=== PATIENT | male | born 1930 | race Caucasian/White ===

== ENCOUNTER 2018-10-13 11:30 | Inpatient (IN) | payer OTHER ==
[2018-10-14] MEDS ORDERED: COLACE100 MG PO (01:35)
[2018-10-14] MEDS ORDERED: LYRICA75 MG PO (01:36)
[2018-10-14] MEDS ORDERED: ISOSORBIDE MONO60 M1 PO (01:37)
[2018-10-14] MEDS ORDERED: NITROSTAT0.4 MG SL (01:49)
[2018-10-14] MEDS ORDERED: ACETAMINOPHEN325 MG PO (01:53)
[2018-10-14] MEDS ORDERED: LASIX40 MG PO (01:53)
[2018-10-14] MEDS ORDERED: ZOFRAN4 MG PO (01:55)
[2018-10-14] MEDS ORDERED: K-DUR20 MEQ PO (01:55)
[2018-10-14] MEDS ORDERED: MORPHINE SULFAT30 MG PO (01:57)
[2018-10-14] MEDS ORDERED: MIRALAX17 GM PO (01:58)
[2018-10-14] MEDS ORDERED: LORAZEPAM1 MG/0.5 M SL (02:01)
[2018-10-14] MEDS ORDERED: ATIVAN0.5 MG PO (02:02)
[2018-10-14] MEDS ORDERED: DURAGESIC1 PATCH .2 TRANSDERM (02:03)
[2018-10-14] MEDS ORDERED: CYMBALTA20 MG PO (02:04)
[2018-10-14] MEDS ORDERED: DECADRON4 MG PO (02:06)
[2018-10-14 02:38] VITALS: BP 94/36
--- NOTE | 2018-10-14 07:10 | MORECARE ---
CASE MANAGEMENT DISCHARGE SUMMARY PATIENT: PATITO REYNOLDS UNIT: [id number] ADM DATE: 10/13/18 AGE: 88 : 31 SEX: M ROOM/BED: D.2104 AUTHOR: LAUREANO PENA PHYSICIAN: REFERRING PHYSICIAN: JOSIE VAN MD DATE OF SERVICE: 10/14/18 Discharge Plan Patient Name: PATITO REYNOLDS Facility: [facility]:[place] : 1930 Planned Disposition: Home with Hospice Anticipated Discharge Date: Discharge Date: Expected LOS: Initial Reviewer: [email or web address] Initial Review Date: 10/14/2018 Generated: 10/14/18 8:10 am Comments DCP- Discharge Planning Updated by [email or web address]: Darrick Esqueda on 10/14/18 6:[address] Patient Name: PATITO REYNOLDS Admission Status: Elective Accout number: [id number] Admission Date: 10-13-2018 : 1930 Admission Diagnosis: Attending: JOSIE VAN Current LOS: 1 Anticipated DC Date: Planned Disposition: Home with Hospice Primary Insurance: UNINSURED DISCOUNT PLAN PLANNED EXTERNAL PROVIDER: [facility] Discharge Planning Comments: CM REVIEWED CHART, PT ADMITTED FOR PAIN CONTROL WITH [facility]. ALL CASE MANAGEMENT SERVICES PROVIDED BY [facility]. Program Host: Darrick Esqueda Patient Name: PATITO REYNOLDS Page [id number] at 0710 All edits/amendments must be made on the electronic document DICTATION DATE: 10/14/18708 MOTOR BIKE MECHANIC: ROSA 10/14/18708 RPT#: [id number] DC DATE: STATUS: ADM IN [facility] [address] [place] [address] END OF REPORT
--- NOTE | 2018-10-14 07:15 | NUR ---
INITIAL ROUNDING ON THE PATIENT, NO FAMILY AT BEDSIDE. PATIENT IS SLIGHTLY SNORING, SUPINE WITH HOB 30 DEGREES. BED ALARM TURNED ON AT THIS TIME. PATIENT WAKES TO NAME BUT FALLS BACK TO SLEEP. CALL LIGHT IN REACH
[2018-10-14 08:06] VITALS: BP 170/86
--- NOTE | 2018-10-14 11:50 | NUR ---
THE SECURITY GUARD SUPERVISOR PUMP IS BEEPING, NEEING REPLACEMENT MEDICATION. THE PATIENT IS VERY SLEEPY, DENIES PAIN. WILL LEAVE SECURITY GUARD SUPERVISOR OFF AT THIS TIME AND ALLOW THE PATIENT TO WAKE UP SOME, THE FAMILY AT BEDSIDE AGREES. WILL CONT TO MONITOR FOR PAIN
[2018-10-14 20:00] VITALS: BP 158/95
--- NOTE | 2018-10-14 21:57 | NUR ---
PT LAYING IN BED UN-ALERT AND ONLY RESPONSIVE TO STURNUM RUB. PT EYES CLOSED RR WITH CRACKLES AND GURGLES. PT ON CONTROLLER OPERATIONS AND HR MANAGER PUMP FOR PAIN. STRAIGHTNED PT'S BED AND PROVIDED ORAL CARE. WILL CONTINUE TO MONITOR PT.
[2018-10-15 00:30] VITALS: BP 160/82
--- NOTE | 2018-10-15 02:45 | NUR ---
PT RECIEVED BEDBATH. PT RESTING IN BED ALERT TO LOUD VOICE ONLY. PT BREATH SOUNDS WET. NO S/S OF DISTRESS. BED LOW CALL LIGHT WITHIN REACH. WILL CONTINUE TO MONITOR.
--- NOTE | 2018-10-15 04:50 | NUR ---
PT RESTLESS WITH SNORING LIKE RESPIRATIONS. 2MG BOLUS OF GIVEN. WILL CONTINUE TO MONITOR.
--- NOTE | 2018-10-15 08:20 | NUR ---
PRICE CLERK TRIED TO FEED PT BREAKFAST AND HE WOULD NOT EAT. PT IN AND OUT OF LETHARGY AND RESTLESSNESS.
--- NOTE | 2018-10-15 09:40 | NUR ---
SPOKE WITH HOSPICE NURSE THAT PT NEEDS ATROPINE DROPS. SHE GAVE ME ORDER TO PUT IN FOR ATROPINE SUBLINGUAL 1-2 DROPS Q2HP FOR SECRETIONS.
[2018-10-15 09:46] VITALS: BP 120/92
--- NOTE | 2018-10-15 11:08 | NUR ---
PT HAS SKIN TEAR ON RIGHT HAND. APPLIED PETROLEUM GAUZE, DRY 4X4, AND WRAPPED WITH KERLIX. INITIALED AND DATED. PT RESTLESS AND MOVING IN THE BED. READJUSTED PT IN THE BED AND GAVE MORPHINE BOLUS AND ATROPINE DROPS. PT HAD URINATION INCONTINENCE IN THE BED, COMPLETE BED CHANGE DONE AND PT'S FACE WASHED TO GET DRIED SECRETIONS FROM EYES.
--- NOTE | 2018-10-15 12:32 | NUR ---
PT EYES CLOSED. CHEST RISING AND FALLING. PT SOMNOLENT, ACCEPTABLE. PT'S AT BEDSIDE. WILL CONTINUE TO MONITOR.
--- NOTE | 2018-10-15 16:56 | NUR ---
AGREE WITH BRAKE ADJUSTER ASSESSMENT
--- NOTE | 2018-10-15 17:35 | NUR ---
PT'S PAD DRY.
--- NOTE | 2018-10-15 18:37 | NUR ---
PT RESTLESS AND FLAILING ARMS. DILAUDID PROFESSIONAL BASS FISHERMAN BOLUS GIVEN.
--- NOTE | 2018-10-15 18:48 | NUR ---
DILAUDID HEALTH AIDE EMPTY WASTED REST OF WHAT IS LEFT IN SYRINGE AND REPLACED DILAUDID SYRINGE.
--- NOTE | 2018-10-15 19:30 | NUR ---
PT RESTING IN BED COMFORTABLY WITH EYES CLOSED. RR LABORED AND CRACKLES. NO S/S OF DISTRESS. BED LOW CALL LIGHT WITH IN REACH SIDE RAILS UP X2. WILL CONTINUE TO MONITOR.
[2018-10-15 20:00] VITALS: BP 176/100
--- NOTE | 2018-10-16 01:06 | NUR ---
PT RESTLESS WITH GARGGLY AUDIABLE LUNG SOUNDS. RR LABORED. GAVE PT 2MG PRN BOLUS OF HYDROMORIPOME. PREFORMED ORAL CARE. RT SUCTIONED MOUTH. BED LOW CALL LIGHT WITHIN REACH. WILL CONTINUE TO MONITOR.
--- NOTE | 2018-10-16 02:04 | NUR ---
Patient lying in bed with eyes closed, respirations slightly labored and loud, crackles heard in lungs. Snoring intermittently. Respirations quiet then loud. IV infusing with Dilaudid HEAD REFRIGERATING ENGINEER. Will continue to monitor.
[2018-10-16 09:13] VITALS: BP 155/77
--- NOTE | 2018-10-16 11:53 | NUR ---
Patient is resting comfortably at this time. Hospice nurse has stopped in and spoke to the family .
--- NOTE | 2018-10-16 13:35 | NUR ---
PATIENT IS DRESSED AND IS AFRAID OF HER BROTHER COMING TO GET HER. SHE HAS HAD ALL HER REGULAR MEDICATIONS. SHE IS TALKING ABOUT THINGS THAT DO NOT APPLY TO THE CURRENT SITUATION AT ALL. SHE HAS DRESSED AND TRIED TO LEAVE IN THE ELIVATOR. I HAVE CALLED JAZMYNE,AND SHE IS COMING TO EVALUATE THE PATIENT.
--- NOTE | 2018-10-16 17:42 | NUR ---
I have reviewed this patient and I concur with the Shift Assessment completed by the Licensed Practical Nurse today this shift.
--- NOTE | 2018-10-16 17:57 | NUR ---
PATIENT IS RESTING QUIETLY AT THIS TIME. HE IS BREATHING WITH MOUTH OPEN AND ORAL CARE HAS BEEN COMPLETED. NO FAMILY AT BEDSIDE AT THIS TIME.
--- NOTE | 2018-10-16 19:58 | NUR ---
PT SITTING UP IN BED RESTING COMFORTABLY ON HOSPICE CARE. OK HAS COUNTINOUS FOOD SELECTOR RUNNING. PT BREATHS ARE APNEIC BREATHING. AUDIIBLE CRACKLES HEARD THROUGH LUNGS. PT MOUTH BREATHING. PERFORMED ORAL CARE ON PT. MUCOUS MEMBRANES DRY. PT APPEARS TO BE COMFORTABLE WITHOUT DISTRESS AT THIS TIME. WILL CONTINUE TO MONITOR. BED LOW.
[2018-10-16 20:00] VITALS: BP 145/76
--- NOTE | 2018-10-17 00:07 | NUR ---
PT RESTING COMFORTABLE IN BED. RR-18. PT ON COUNTINOUS RETAIL DELIVERY DRIVER AT 0.5MG/HR. BED LOW, SIDE RAILS UP X2. NO FAMILY AT BEDSIDE. WILL CONTINUE TO MONITOR.
--- NOTE | 2018-10-17 01:51 | NUR ---
PT RESTING COMFORTABLY AT THIS TIME. RR SHOLLOW AND 22 AT THIS TIME. ORAL CARE PROVIDED. BED LOW CALL LIGHT WITHIN REACH. WILL CONTINUE TO MONITOR.
--- NOTE | 2018-10-17 04:02 | NUR ---
I have reviewed this patient and I concur with the Shift Assessment completed by the Licensed Practical Nurse today this shift.
[2018-10-17 09:22] VITALS: BP 105/57
--- NOTE | 2018-10-17 11:55 | NUR ---
TIME OF 1035 FAMILY AND [facility] NURSE AT BEDSIDE.O2 AND IV PUMP TURNED OFF FAMILY REQUESTED TIME TO SPEND WITH PATIENT. HOME TO BE CALLED UPON FAMILY LEAVING. DINA CALLED AT 1115 PATIENT DENIED DUE TO CANCER DIAGNOSIS.
--- NOTE | 2018-10-18 09:21 | MORECARE ---
CASE MANAGEMENT DISCHARGE SUMMARY PATIENT: PATITO REYNOLDS UNIT: [id number] ADM DATE: 10/13/18 AGE: 88 : 31 SEX: M ROOM/BED: D.2104 AUTHOR: LAUREANO PENA PHYSICIAN: REFERRING PHYSICIAN: JOSIE VAN MD DATE OF SERVICE: 10/18/18 Discharge Plan Patient Name: PATITO REYNOLDS Facility: [facility]:[place] : 1930 Planned Disposition: Anticipated Discharge Date: 10/17/18 Discharge Date: 10/17/2018 Expected LOS: 4 Initial Reviewer: [email or web address] Initial Review Date: 10/14/2018 Generated: 10/18/18 10:21 am Comments DCP- Discharge Planning Updated by [email or web address]: Darrick Esqueda on 10/14/18 6:[address] Patient Name: PATITO REYNOLDS Admission Status: Elective Accout number: [id number] Admission Date: 10-13-2018 : 1930 Admission Diagnosis: Attending: JOSIE VAN Current LOS: 1 Anticipated DC Date: Planned Disposition: Home with Hospice Primary Insurance: UNINSURED DISCOUNT PLAN PLANNED EXTERNAL PROVIDER: [facility] Discharge Planning Comments: CM REVIEWED CHART, PT ADMITTED FOR PAIN CONTROL WITH [facility]. ALL CASE MANAGEMENT SERVICES PROVIDED BY [facility]. Roll Mechanic: Darrick Esqueda Last DP export: 10/14/18 6:10 a Patient Name: PATITO REYNOLDS Page [phone] at 0921 All edits/amendments must be made on the electronic document DICTATION DATE: 10/18/18920 SAFETY SEALER: DM 10/18/18920 RPT#: [id number] DC DATE:10/17/18 STATUS: DIS IN [facility] [address] [place] [address] END OF REPORT
== END 2018-10-17 13:31 | DRG 951 ==
LOC: EDSEX 11:30 → D.M2 11:30
PROVIDERS: ADMIT Legal Medicine; ATTEND Legal Medicine
DX: Z51.5 Encounter for palliative care (principal)